=== PATIENT | male | born 1985 | race Caucasian/White ===

== ENCOUNTER 2016-08-07 09:38 | Emergency (ER) | payer MEDICAID ==
--- NOTE | 2016-08-07 10:30 | XRAY Preliminary Report ---
Exam: XR Wrist 3 View RT IMPRESSION: 1. Displaced posterior fracture fragments, most consistent with a triquetral fracture. 2. Dorsal wrist soft tissue swelling. [facility] SITE ID: [id number]
--- NOTE | 2016-08-07 10:32 | XRAY Report ---
EXAM: RIGHT WRIST RADIOGRAPHY EXAM DATE: 08/07/2016 10:06 AM. CLINICAL HISTORY: GLF wrist pain. COMPARISON: None. TECHNIQUE: 3 views. FINDINGS: Bones: There are at least 3 small fragments dorsal to proximal carpal row measuring up to 3 mm in max imum diameter and displaced dorsally as much as 5 mm, as demonstrated on the lateral view only. These are most consistent with a triquetral fracture. Joints: Normal. No subluxations. Soft Tissues: Dorsal wrist soft tissue swelling. IMPRESSION: 1. Displaced posterior fracture fragments, most consistent with a triquetral fracture. 2. Dorsal wrist soft tissue swelling. [facility] Referring Provider Line: [phone] SITE ID: [id number]
--- NOTE | 2016-08-07 11:21 | ED Physician Documentation ---
PD HPI UPPER EXT INJURY - Stated complaint Stated Complaint: RT ARM PX/SWELLING - Chief complaint Chief Complaint: Ext Problem - History obtained from History obtained from: Patient - History of Present Illness Location: Right, Wrist Type of injury: Fall (slipped backward and landed to right outstretched wrist) Timing - onset: Today Timing - duration: Hours Timing - details: Abrupt onset, Still present Worsened by: Moving, Palpating Associated symptoms: Swelling. No: Weakness, Numbness Similar symptoms before: Has not had sx before Recently seen: Not recently seen Review of Systems Skin: denies: Abrasion (s), Laceration (s) Neurologic: denies: Headache, Head injury PD PAST MEDICAL HISTORY - Past Medical History Cardiovascular: None Respiratory: None Neuro: None Musculoskeletal: None - Present Medications Home Medications: Ambulatory Orders Medication Instructions Recorded Confirmed No Known Home Medications [No 08/07/16 08/07/16 Known Home Medications] - Allergies Allergies/Adverse Reactions: Allergies Allergy/AdvReac Type Severity Reaction Status Date / Time erythromycin base Allergy Unknown Verified 08/07/16 10:01 shellfish derived Allergy Unknown Verified 08/07/16 10:01 PD ED PE NORMAL - Vitals Vital signs reviewed: Yes - General General: Alert and oriented X 3, Well developed/nourished - HEENT HEENT: Atraumatic - Neck Neck: Supple, no meningeal sign, No bony TTP, No adenopathy - Back Back: No spinal TTP - Derm Derm: Normal color, Warm and dry - Extremities Extremities: Other (right wrist with tenderness and swelling dorsally. Not tender at snuffbox. Good color and cap refill in fingertips. ) - Neuro Neuro: Alert and oriented X 3, No motor deficit, No sensory deficit Results - Vitals Vitals: Vital Signs - 24 hr 08/07/16 08/07/16 09:48 12:22 Temperature 36.5 C Heart Rate 61 57 L Respiratory 20 14 Rate Blood Pressure 125/76 136/88 H O2 Saturation 100 100 Oxygen O2 Source Room air - Rads (name of study) wrist Radiology: Prelim report reviewed, EMP read contemporaneously (dorsal chip avulsions c/w triquetral, representing ligamentous injury mainly.) PD MEDICAL DECISION MAKING - ED course Complexity details: reviewed results, considered differential, d/w patient Departure - Departure Disposition: 01 Home, Self Care Clinical Impression: Accidental fall Qualifiers: Encounter type: initial encounter Qualified Code(s): W19.XXXA - Unspecified fall, initial encounter Sprain of wrist, right Qualifiers: Encounter type: initial encounter Qualified Code(s): S63.501A - Unspecified sprain of right wrist, initial encounter Triquetral chip fracture Qualifiers: Encounter type: initial encounter Fracture type: closed Laterality: right Qualified Code(s): S62.111A - Displaced fracture of triquetrum [cuneiform] bone , right wrist, initial encounter for closed fracture Condition: Stable Record reviewed to determine appropriate education?: Yes Instructions: ED Sprain Wrist, Fx Wrist Tx Follow-Up: Evin Decker MD [Provider Admit Priv/Credential] - Comments: Wrist splint for 3-4 weeks for the sprain and also the avulsion of bone. Limited use as needed for comfort. Tylenol or Ibuprofen as needed for pains. Ice and elevate the wrist for swelling the next few days. Recheck wrist in about 10-14 days to ensure healing okay, call for appt. Discharge Date/Time: 08/07/16 12:43
[2016-08-07 12:23] VITALS: BP 136/88
== END 2016-08-07 12:43 | disposition home or self-care (01) ==
LOC: ED 09:38
DX: S62.111A Displaced fracture of triquetrum [cuneiform] bone, right wrist, initial encounter for closed fracture (principal); S63.501A Unspecified sprain of right wrist, initial encounter; W01.0XXA Fall on same level from slipping, tripping and stumbling without subsequent striking against object, initial encounter
CPT/HCPCS: 99283